=== PATIENT | female | born 1975 | race African-American/Black ===

== ENCOUNTER → 2016-09-17 | Outpatient (CLI) | payer OTHER ==
--- NOTE | 2016-09-17 18:08 | US ---
EXAMINATION TYPE: US OB >= 14 wk fetus DATE OF EXAM: 09/17/2016 5:08 PM COMPARISON: 06/23/2016 CLINICAL HISTORY: USMaternal hypertension TECHNIQUE: Transabdominal (TA) GESTATIONAL AGE / DATING Physician Established: (29 weeks/2 days) EDC: 12/01/2016 Dates by LMP: Unknown Dates by First Scan: (30 weeks/1 days) EDC: 11/25/2016 Dates by Current Scan: (30 weeks/1 days) EDC: 11/25/2016 SURVEY IUP: Single PLACENTA: Anterior PREVIA: No Previa DALJIT: 13.7 cm Normal CERVICAL LENGTH (transabdominal: norm > 3.0cm): 3.6 cm BIOMETRY PRESENTATION: Breech BPD: 7.6 cm 30 weeks / 2 days HC: 28.5 cm 31 weeks / 2 days AC: 26.1 cm 30 weeks / 2 days FL: 5.8 cm 30 weeks / 2 days ESTIMATED WEIGHT IN GRAMS: 1558 grams ESTIMATED WEIGHT IN LBS/OZS: 3 lbs. 7 oz. WEIGHT PERCENTAGE BASED ON ESTABLISHED DATES: 76% HC/AC: 1.09 Normal FL/AC: 22 Normal HEART RATE: 143 bpm RHYTHM: Normal MATERNAL WALL MEASUREMENT: 5.0 cm from skin to anterior uterine wall (if exam limited due to body hab itus). TECHNOLOGIST IMPRESSION: Single, viable IUP/ Growth parameters wnl Two probable fibroids as seen on previous exam 1)=Anterior uterus 5.1 x 3.6 x 4.5 cm and 2)=Left uter us 5.8 x 3.6 x 4.3 cm IMPRESSION: Uterine fibroids noted. There is satisfactory growth compared to old exam. I see no significant complicating process.
== END | disposition home or self-care (01) ==
LOC: RADUSWWP 16:50
PROVIDERS: ATTEND Obstetrics & Gynecology
DX: O34.13 Maternal care for benign tumor of corpus uteri, third trimester (principal); D25.9 Leiomyoma of uterus, unspecified; O16.3 Unspecified maternal hypertension, third trimester; Z3A.30 30 weeks gestation of pregnancy
CPT/HCPCS: 76805